=== PATIENT | female | born 1950 | race Caucasian/White ===

== ENCOUNTER 2016-06-26 15:00 | Emergency (ER) | payer OTHER, MEDICAID ==
[~2016-06-26] VITALS: Ht 167.6 cm; Wt 56.7 kg
[2016-06-26 15:00] VITALS: BP_SYST 138
== END 2016-06-26 17:25 | disposition left against medical advice (07) ==
LOC: SED 15:00
DX: M54.2 Cervicalgia (principal); M54.5 Low back pain; M25.551 Pain in right hip; M25.562 Pain in left knee; M25.561 Pain in right knee; M81.0 Age-related osteoporosis without current pathological fracture; W10.9XXA Fall (on) (from) unspecified stairs and steps, initial encounter; Y93.89 Activity, other specified; Y92.89 Other specified places as the place of occurrence of the external cause; Y99.8 Other external cause status
CPT/HCPCS: 72125-TC; 72131; 99284

== ENCOUNTER 2017-03-19 18:30 | Emergency (ER) | payer OTHER, MEDICAID ==
[~2017-03-19] VITALS: Ht 167.6 cm; Wt 54.4 kg
[2017-03-19 18:39] VITALS: BP_SYST 126
--- NOTE | 2017-03-19 19:17 | NUR ---
Patient to ER bed 03 to gown for evaluation. Side rails up.
--- NOTE | 2017-03-19 19:20 | NUR ---
Patient brought in with father complaining of chronic bilateral knee pain. Patient states that she is out of pain medication and her primary doctor is out of town. Pain of 10/10. Patient is using a walker and is sitting at bedside conversing with father. No acute distress noted. Will continue to monitor.
--- NOTE | 2017-03-19 19:40 | NUR ---
Joanna Rivas at bedside examining patient
[2017-03-19 20:30] VITALS: BP_SYST 126
--- NOTE | 2017-03-19 20:30 | NUR ---
Patient given written and verbal discharge instructions and verbalizes understanding. ER MD discussed with patient the results and treatment provided. Patient in stable condition. ID arm band removed. Rx of Tramadol, Mobic, [place] given. Patient educated on pain management and to follow up with PMD in 2-3 days. Pain Scale 0/10 Opportunity for questions provided and answered.
== END 2017-03-19 20:30 | disposition home or self-care (01) ==
LOC: SED 18:30
DX: G89.29 Other chronic pain (principal); M25.551 Pain in right hip; M25.552 Pain in left hip; M25.561 Pain in right knee; M25.562 Pain in left knee; M54.5 Low back pain; M81.0 Age-related osteoporosis without current pathological fracture; R03.0 Elevated blood-pressure reading, without diagnosis of hypertension
CPT/HCPCS: 99283

== ENCOUNTER 2021-12-07 15:35 | Inpatient (IN) | payer BC, MEDICAID ==
[~2021-12-07] VITALS: Ht 165.1 cm; Wt 65.8 kg
[2021-12-07 15:42] VITALS: BP_SYST 110
[2021-12-07] MEDS ORDERED: NALOXONE HCL 2 MG/2 ML SYR IVP ONE (16:45)
[2021-12-07 16:48] LABS: BASOPHILS % (AUTO) 0.4 % (0.0-2.0); EOSINOPHILS % (AUTO) 0.1 % (0.0-4.0); LYMPHOCYTES # (AUTO) 0.9 K/uL (1.0-5.5); LYMPHOCYTES % (AUTO) 17.9 % (20.5-51.5); MEAN CORPUSCULAR VOLUME 97 fL (79.0-98.0); MONOCYTES # (AUTO) 0.8 K/uL (0.0-1.0); MONOCYTES % (AUTO) 14.8 % (1.7-9.3); NEUTROPHILS # (AUTO) 3.5 K/uL (1.8-7.7); NEUTROPHILS % (AUTO) 66.8 % (40.0-70.0); PLATELET COUNT (AUTO) 292 K/uL (130-430); RED BLOOD CELL COUNT(AUTO) 4.03 MIL/uL (4.2-6.2); RED CELL DISTRIBUTION WIDTH 15.3 % (9.0-15.0); WHITE BLOOD COUNT (AUTO) 5.3 K/uL (4.8-10.8)
[2021-12-07 17:01] LABS: ANION GAP 13 (5-15); CALCIUM 9.9 mg/dL (8.4-11.0); CHLORIDE 96 mmol/L (98-107); GLUCOSE 135 mg/dL (70-99); UREA NITROGEN, BLOOD 18 mg/dL (8-21)
[2021-12-07 17:06] LABS: PROTHROMBIN TIME 9.8 SECS (9.5-12.5)
[2021-12-07 17:14] LABS: ALANINE AMINOTRANSFERASE 20 U/L (12-78); ALBUMIN 2.5 g/dL (3.4-4.8); ASPARTATE AMINOTRANSFERASE 61 U/L (10-37); C-REACTIVE PROTEIN QUANT 7.8 mg/dL (0-0.5); GFR AFRICAN AMERICAN 80 mL/min (>90); TOTAL BILIRUBIN 0.5 mg/dL (0.0-1.0)
[2021-12-07 17:15] LABS: POTASSIUM 2.9 mmol/L (3.5-5.1)
[2021-12-07] MEDS ORDERED: DEXAMETHASONE SOD PHOSPHATE 10 MG/ML VIAL IVP ONE (18:15)
[2021-12-07] MEDS ORDERED: ASPIRIN 81 MG TAB.CHEW PO ONE (18:30)
[2021-12-07] MEDS ORDERED: ETOMIDATE 20 MG/ 10 ML VIAL (AMIDATE) IVP ONE (19:15)
[2021-12-07] MEDS ORDERED: ROCURONIUM BROMIDE 10 MG/ML (ZEMURON) IV ONE (19:15)
[2021-12-07] MEDS ORDERED: PROPOFOL DRIP 100 ML IV ONE (19:44)
[2021-12-07] MEDS ORDERED: ROCURONIUM BROMIDE 10 MG/ML (ZEMURON) ONE (20:00)
[2021-12-07] MEDS ORDERED: PROPOFOL DRIP 100 ML IV PRN ×2 (20:00→21:15)
[2021-12-07 20:35] LABS: ACETONE, SERUM NEGATIVE (NEGATIVE)
[2021-12-07 20:44] LABS: ACETAMINOPHEN < 1 ug/mL (1-30); ALCOHOL, BLOOD < 3 mg/dL (<10)
[2021-12-07] MEDS ORDERED: KCL 40 mEq in 100 mL (PREMIX) 100 ML IV ONE (20:45)
[2021-12-07] MEDS ORDERED: ENOXAPARIN SODIUM 60 MG/0.6 ML SYRINGE SUBCUT ONE (21:00)
[2021-12-07] MEDS ORDERED: IPRATROPIUM/ALBUTEROL SULFATE 3 ML AMPUL.NEB (DUONEB) INH PRN (21:00)
[2021-12-07] MEDS ORDERED: NACL 0.9% 1,000 ML IV ONE (21:00)
[2021-12-07] MEDS ORDERED: IPRATROPIUM/ALBUTEROL SULFATE 3 ML AMPUL.NEB (DUONEB) INH SCH (21:00)
[2021-12-07] MEDS ORDERED: ACETAMINOPHEN 325 MG TABLET PO PRN (21:00)
[2021-12-07 21:13] LABS: BILIRUBIN,URINE NEGATIVE (NEGATIVE); BLOOD, URINE NEGATIVE (NEGATIVE); CLARITY/URINE CLEAR (CLEAR); COLOR,URINE YELLOW (YELLOW); GLUCOSE,URINE NEGATIVE (NEGATIVE); KETONES,URINE NEGATIVE (NEGATIVE); LEUKOCYTE ESTERASE ,URINE NEGATIVE (NEGATIVE); NITRITE, URINE NEGATIVE (NEGATIVE); PROTEIN URINE NEGATIVE (NEGATIVE); UROBILINOGEN,URINE 0.2 (0.2-1.0)
[2021-12-07 21:30] VITALS: BP_SYST 114
[2021-12-07] MEDS ORDERED: PANTOPRAZOLE SODIUM 40 MG/VIAL (PROTONIX) IVP ONE (21:30)
[2021-12-07 21:38] LABS: BARBITURATE, URINE NEGATIVE (NEG <=200); BENZODIAZEPINE, URINE NEGATIVE (NEG <=150); CANNABINOID, URINE NEGATIVE (NEG <=50); COCAINE, URINE NEGATIVE (NEG <=150); METHAMPHETAMINES SCREEN,URINE NEGATIVE (NEG <=500); OPIATE, URINE POSITIVE (NEG <=100); PHENCYCLIDINE SCREEN,URINE NEGATIVE (NEG <=25); UR TRICYCLIC ANTIDEPRESSANTS NEGATIVE (NEG <=300); URINE AMPHETAMINE NEGATIVE (NEG <=500); URINE METHADONE NEGATIVE (NEG <=200); URINE OXYCODONE SCREEN NEGATIVE (NEG <=100); URINE PROPOXYPHENE SCREEN NEGATIVE (NEG <=300)
[2021-12-07 22:00] VITALS: BP_SYST 114; BP_SYST 168
[2021-12-07] MEDS ORDERED: cefTRIAXone 1 GM IVPB PREMIX 50 ML IV SCH (22:00)
[2021-12-07 22:03] VITALS: BP_SYST 169
[2021-12-07] MEDS ORDERED: SODIUM BICARBONATE 8.4% JECT 150 MEQ in D5W 1,000 ML IVP SCH (22:26)
[2021-12-07] MEDS ORDERED: SODIUM BICARBONATE 8.4% JECT 50 MEQ/50 ML SYRINGE IVP ONE ×2 (22:26)
[2021-12-07] MEDS ORDERED: SODIUM BICARBONATE 8.4% JECT 50 MEQ/50 ML SYRINGE ONE ×2 (22:37→23:11)
[2021-12-07] MEDS ORDERED: NS 500 ML IV ONE (22:45)
[2021-12-07] MEDS ORDERED: AZITHROMYCIN 500 MG in NS 250 ML IV SCH (23:00)
[2021-12-07 23:33] VITALS: BP_SYST 162
[2021-12-07] MEDS ORDERED: NOREPINEPHRINE BITARTRATE 4 MG in NS 246 ML IV PRN (23:45)
[2021-12-08] VITALS (44 sets, daily range): BP systolic 90–163
[2021-12-08] MEDS: NACL 0.9% 1,000 ML IV SCH ×4 (00:07→17:24)
[2021-12-08] MEDS: PROPOFOL DRIP 100 ML IV PRN ×3 (06:11→20:51)
[2021-12-08 06:54] LABS: CALCIUM 8.1 mg/dL (8.4-11.0); CREATININE 1.26 mg/dL (0.55-1.30); POTASSIUM 4.2 mmol/L (3.5-5.1)
[2021-12-08 06:58] LABS: BASOPHILS % (AUTO) 0.4 % (0.0-2.0); EOSINOPHILS % (AUTO) 0.1 % (0.0-4.0); HEMATOCRIT 36.2 % (36-48); LYMPHOCYTES # (AUTO) 0.7 K/uL (1.0-5.5); LYMPHOCYTES % (AUTO) 5.8 % (20.5-51.5); MEAN CORPUSCULAR VOLUME 97 fL (79.0-98.0); MONOCYTES # (AUTO) 0.3 K/uL (0.0-1.0); MONOCYTES % (AUTO) 2.9 % (1.7-9.3); NEUTROPHILS # (AUTO) 10.7 K/uL (1.8-7.7); NEUTROPHILS % (AUTO) 90.8 % (40.0-70.0); PLATELET COUNT (AUTO) 249 K/uL (130-430); RED BLOOD CELL COUNT(AUTO) 3.72 MIL/uL (4.2-6.2); RED CELL DISTRIBUTION WIDTH 15.4 % (9.0-15.0); WHITE BLOOD COUNT (AUTO) 11.8 K/uL (4.8-10.8)
[2021-12-08 07:02] LABS: ALBUMIN 1.8 g/dL (3.4-4.8); PHOSPHORUS 4.6 mg/dL (2.7-4.5); TOTAL BILIRUBIN 0.4 mg/dL (0.0-1.0)
[2021-12-08 08:05] LABS: INR 1.3 (0.8-1.2)
[2021-12-08 08:11] LABS: PROTHROMBIN TIME 13.3 SECS (9.5-12.5)
[2021-12-08] MEDS ORDERED: DEXAMETHASONE SOD PHOSPHATE 10 MG/ML VIAL IVP SCH (09:00)
[2021-12-08] MEDS ORDERED: ENOXAPARIN SODIUM 60 MG/0.6 ML SYRINGE SUBCUT SCH (09:00)
[2021-12-08] MEDS ORDERED: PANTOPRAZOLE SODIUM 40 MG/VIAL (PROTONIX) IVP SCH (09:00)
[2021-12-08] MEDS: cefTRIAXone 1 GM IVPB PREMIX 50 ML IV SCH (10:00)
[2021-12-08] MEDS: DEXAMETHASONE SOD PHOSPHATE 10 MG/ML VIAL IVP SCH (10:00)
[2021-12-08] MEDS: ASPIRIN 81 MG TAB.CHEW PO SCH (10:01)
[2021-12-08] MEDS: AZITHROMYCIN 500 MG in NS 250 ML IV SCH (10:04)
[2021-12-08] MEDS ORDERED: TOCILIZUMAB 400 MG in NS 100 ML IV ONE (14:00)
[2021-12-08] MEDS: MICAFUNGIN SODIUM 100 MG in NS 100 ML IV SCH (14:11)
[2021-12-08] MEDS: ENOXAPARIN SODIUM 30 MG/0.3 ML SYRINGE SUBCUT SCH (20:45)
[2021-12-09] VITALS (44 sets, daily range): BP systolic 90–160
[2021-12-09] MEDS: NACL 0.9% 1,000 ML IV SCH ×4 (03:00→21:38)
[2021-12-09] MEDS: PROPOFOL DRIP 100 ML IV PRN ×4 (06:57→21:39)
[2021-12-09 07:04] LABS: BASOPHILS # (AUTO) 0.1 K/uL (0.0-0.2); BASOPHILS % (AUTO) 0.6 % (0.0-2.0); LYMPHOCYTES % (AUTO) 8.3 % (20.5-51.5); MEAN CORPUSCULAR VOLUME 98 fL (79.0-98.0); MONOCYTES # (AUTO) 0.4 K/uL (0.0-1.0); MONOCYTES % (AUTO) 3.5 % (1.7-9.3); NEUTROPHILS # (AUTO) 10.7 K/uL (1.8-7.7); NEUTROPHILS % (AUTO) 87.6 % (40.0-70.0); PLATELET COUNT (AUTO) 268 K/uL (130-430); RED BLOOD CELL COUNT(AUTO) 2.87 MIL/uL (4.2-6.2); RED CELL DISTRIBUTION WIDTH 15.7 % (9.0-15.0); WHITE BLOOD COUNT (AUTO) 12.3 K/uL (4.8-10.8)
[2021-12-09 07:17] LABS: CREATININE 1.35 mg/dL (0.55-1.30); POTASSIUM 3.7 mmol/L (3.5-5.1)
[2021-12-09 07:36] LABS: ALBUMIN 1.5 g/dL (3.4-4.8); THYROID STIMULATING HORMONE 0.18 uIu/mL (0.36-3.74); TOTAL BILIRUBIN 0.3 mg/dL (0.0-1.0)
[2021-12-09 08:48] LABS: CALCIUM 6.7 mg/dL (8.4-11.0)
[2021-12-09] MEDS: DEXAMETHASONE SOD PHOSPHATE 10 MG/ML VIAL IVP SCH (08:54)
[2021-12-09] MEDS: cefTRIAXone 1 GM IVPB PREMIX 50 ML IV SCH (08:54)
[2021-12-09] MEDS: ENOXAPARIN SODIUM 30 MG/0.3 ML SYRINGE SUBCUT SCH ×2 (08:54→21:37)
[2021-12-09] MEDS: ASPIRIN 81 MG TAB.CHEW PO SCH (08:54)
[2021-12-09] MEDS: AZITHROMYCIN 500 MG in NS 250 ML IV SCH (09:00)
[2021-12-09] MEDS: MORPHINE SULFATE IN 0.9 % NACL 100 ML IV PRN (10:16)
[2021-12-09] MEDS ORDERED: TOCILIZUMAB 400 MG in NS 100 ML IV ONE (14:00)
[2021-12-09] MEDS: MICAFUNGIN SODIUM 100 MG in NS 100 ML IV SCH (15:34)
[2021-12-10] VITALS (21 sets, daily range): BP systolic 81–143
[2021-12-10 07:15] LABS: BASOPHILS % (AUTO) 0.3 % (0.0-2.0); HEMATOCRIT 28.6 % (36-48); LYMPHOCYTES # (AUTO) 0.8 K/uL (1.0-5.5); LYMPHOCYTES % (AUTO) 5.1 % (20.5-51.5); MEAN CORPUSCULAR VOLUME 98 fL (79.0-98.0); MONOCYTES # (AUTO) 0.4 K/uL (0.0-1.0); MONOCYTES % (AUTO) 2.9 % (1.7-9.3); NEUTROPHILS # (AUTO) 13.6 K/uL (1.8-7.7); NEUTROPHILS % (AUTO) 91.7 % (40.0-70.0); PLATELET COUNT (AUTO) 315 K/uL (130-430); RED BLOOD CELL COUNT(AUTO) 2.91 MIL/uL (4.2-6.2); RED CELL DISTRIBUTION WIDTH 15.5 % (9.0-15.0); WHITE BLOOD COUNT (AUTO) 14.8 K/uL (4.8-10.8)
[2021-12-10 07:55] LABS: CREATININE 1.34 mg/dL (0.55-1.30); POTASSIUM 3.7 mmol/L (3.5-5.1)
[2021-12-10 08:04] LABS: ALBUMIN 1.4 g/dL (3.4-4.8); TOTAL BILIRUBIN 0.4 mg/dL (0.0-1.0)
[2021-12-10] MEDS: cefTRIAXone 1 GM IVPB PREMIX 50 ML IV SCH (09:00)
[2021-12-10 09:03] LABS: CALCIUM 6.6 mg/dL (8.4-11.0)
[2021-12-10] MEDS: ENOXAPARIN SODIUM 30 MG/0.3 ML SYRINGE SUBCUT SCH ×2 (10:00→21:00)
[2021-12-10] MEDS ORDERED: CALCIUM GLUCONATE 2 GM in NS 100 ML IV ONE (10:00)
[2021-12-10] MEDS: DEXAMETHASONE SOD PHOSPHATE 10 MG/ML VIAL IVP SCH (10:00)
[2021-12-10] MEDS: ASPIRIN 81 MG TAB.CHEW PO SCH (10:00)
[2021-12-10] MEDS ORDERED: NOREPINEPHRINE 4 MG/4 ML VIAL IV ONE (10:12)
[2021-12-10] MEDS: AZITHROMYCIN 500 MG in NS 250 ML IV SCH (10:50)
[2021-12-10] MEDS ORDERED: CALCIUM GLUCONATE 1 GM/10 ML VIAL ONE (12:29)
[2021-12-10] MEDS: MORPHINE SULFATE IN 0.9 % NACL 100 ML IV PRN (12:44)
[2021-12-10] MEDS: NACL 0.9% 1,000 ML IV SCH ×2 (13:02→22:00)
[2021-12-10] MEDS: PROPOFOL DRIP 100 ML IV PRN ×2 (13:52→19:23)
[2021-12-10] MEDS: MICAFUNGIN SODIUM 100 MG in NS 100 ML IV SCH (16:12)
[2021-12-11] VITALS (23 sets, daily range): BP systolic 104–164
[2021-12-11] MEDS: cefTRIAXone 1 GM IVPB PREMIX 50 ML IV SCH (08:23)
[2021-12-11] MEDS: ASPIRIN 81 MG TAB.CHEW PO SCH (08:24)
[2021-12-11] MEDS: DEXAMETHASONE SOD PHOSPHATE 10 MG/ML VIAL IVP SCH (08:24)
[2021-12-11] MEDS: ENOXAPARIN SODIUM 30 MG/0.3 ML SYRINGE SUBCUT SCH ×2 (08:24→22:17)
[2021-12-11] MEDS: PROPOFOL DRIP 100 ML IV PRN ×3 (08:26→22:17)
[2021-12-11] MEDS: AZITHROMYCIN 500 MG in NS 250 ML IV SCH (10:49)
[2021-12-11] MEDS ORDERED: FUROSEMIDE 20 MG/2 ML VIAL IVP ONE (11:30)
[2021-12-11] MEDS: MICAFUNGIN SODIUM 100 MG in NS 100 ML IV SCH (16:00)
[2021-12-11] MEDS ORDERED: IPRATROPIUM/ALBUTEROL SULFATE 3 ML AMPUL.NEB (DUONEB) ONE (16:03)
[2021-12-11] MEDS: MORPHINE SULFATE IN 0.9 % NACL 100 ML IV PRN (22:21)
[2021-12-11] MEDS: IPRATROPIUM/ALBUTEROL SULFATE 3 ML AMPUL.NEB (DUONEB) INH SCH (23:35)
[2021-12-12] VITALS (37 sets, daily range): BP systolic 59–142
[2021-12-12] MEDS: PROPOFOL DRIP 100 ML IV PRN ×3 (03:37→22:32)
[2021-12-12] MEDS: MORPHINE SULFATE IN 0.9 % NACL 100 ML IV PRN ×3 (05:00→22:35)
[2021-12-12 07:44] LABS: BASOPHILS % (AUTO) 0.1 % (0.0-2.0); HEMATOCRIT 31.6 % (36-48); LYMPHOCYTES # (AUTO) 0.6 K/uL (1.0-5.5); LYMPHOCYTES % (AUTO) 3.4 % (20.5-51.5); MEAN CORPUSCULAR VOLUME 100 fL (79.0-98.0); MONOCYTES # (AUTO) 0.8 K/uL (0.0-1.0); MONOCYTES % (AUTO) 4.4 % (1.7-9.3); NEUTROPHILS % (AUTO) 92.1 % (40.0-70.0); PLATELET COUNT (AUTO) 359 K/uL (130-430); RED BLOOD CELL COUNT(AUTO) 3.16 MIL/uL (4.2-6.2); RED CELL DISTRIBUTION WIDTH 16.6 % (9.0-15.0); WHITE BLOOD COUNT (AUTO) 17.4 K/uL (4.8-10.8)
[2021-12-12 08:38] LABS: ALBUMIN 1.9 g/dL (3.4-4.8); CALCIUM 7.6 mg/dL (8.4-11.0); CREATININE 1.04 mg/dL (0.55-1.30); TOTAL BILIRUBIN 0.4 mg/dL (0.0-1.0)
[2021-12-12] MEDS: IPRATROPIUM/ALBUTEROL SULFATE 3 ML AMPUL.NEB (DUONEB) INH SCH ×3 (09:00→19:42)
[2021-12-12] MEDS: AZITHROMYCIN 500 MG in NS 250 ML IV SCH (10:34)
[2021-12-12] MEDS: ASPIRIN 81 MG TAB.CHEW PO SCH (10:34)
[2021-12-12] MEDS: DEXAMETHASONE SOD PHOSPHATE 10 MG/ML VIAL IVP SCH (10:34)
[2021-12-12] MEDS: ENOXAPARIN SODIUM 30 MG/0.3 ML SYRINGE SUBCUT SCH ×2 (10:37→21:00)
[2021-12-12] MEDS: PIPERACILLIN/TAZO 2.25G/DEX-IS 50 ML IV SCH ×3 (16:16→23:27)
[2021-12-12] MEDS: MICAFUNGIN SODIUM 100 MG in NS 100 ML IV SCH (16:17)
[2021-12-13] VITALS (42 sets, daily range): BP systolic 95–160
[2021-12-13] MEDS: PROPOFOL DRIP 100 ML IV PRN ×4 (05:55→22:48)
[2021-12-13 07:42] LABS: ALBUMIN 1.8 g/dL (3.4-4.8); CREATININE 0.95 mg/dL (0.55-1.30); POTASSIUM 4.5 mmol/L (3.5-5.1); TOTAL BILIRUBIN 0.2 mg/dL (0.0-1.0)
[2021-12-13] MEDS: PIPERACILLIN/TAZO 2.25G/DEX-IS 50 ML IV SCH ×4 (08:33→23:18)
[2021-12-13] MEDS: ASPIRIN 81 MG TAB.CHEW PO SCH (08:34)
[2021-12-13] MEDS: DEXAMETHASONE SOD PHOSPHATE 10 MG/ML VIAL IVP SCH (08:35)
[2021-12-13] MEDS: ENOXAPARIN SODIUM 30 MG/0.3 ML SYRINGE SUBCUT SCH ×2 (08:35→20:35)
[2021-12-13] MEDS: MICAFUNGIN SODIUM 100 MG in NS 100 ML IV SCH (14:12)
[2021-12-13] MEDS: MORPHINE SULFATE IN 0.9 % NACL 100 ML IV PRN ×2 (14:14→22:48)
[2021-12-13] MEDS: IPRATROPIUM/ALBUTEROL SULFATE 3 ML AMPUL.NEB (DUONEB) INH SCH ×3 (17:20→20:08)
[2021-12-14] VITALS (33 sets, daily range): BP systolic 97–149
[2021-12-14] MEDS: PROPOFOL DRIP 100 ML IV PRN ×3 (04:46→17:43)
[2021-12-14] MEDS: PIPERACILLIN/TAZO 2.25G/DEX-IS 50 ML IV SCH ×3 (05:28→18:56)
[2021-12-14] MEDS: MORPHINE SULFATE IN 0.9 % NACL 100 ML IV PRN ×2 (06:32→17:44)
[2021-12-14] MEDS: IPRATROPIUM/ALBUTEROL SULFATE 3 ML AMPUL.NEB (DUONEB) INH PRN (07:41)
[2021-12-14] MEDS: IPRATROPIUM/ALBUTEROL SULFATE 3 ML AMPUL.NEB (DUONEB) INH SCH ×4 (08:10→19:55)
[2021-12-14] MEDS: ASPIRIN 81 MG TAB.CHEW PO SCH (08:25)
[2021-12-14] MEDS: ENOXAPARIN SODIUM 30 MG/0.3 ML SYRINGE SUBCUT SCH ×2 (08:27→21:19)
[2021-12-14] MEDS: DEXAMETHASONE SOD PHOSPHATE 10 MG/ML VIAL IVP SCH (08:28)
[2021-12-14 09:22] LABS: ALBUMIN 1.9 g/dL (3.4-4.8); CALCIUM 8.7 mg/dL (8.4-11.0); CREATININE 1.14 mg/dL (0.55-1.30); POTASSIUM 5.1 mmol/L (3.5-5.1); TOTAL BILIRUBIN 0.2 mg/dL (0.0-1.0)
[2021-12-14] MEDS: MICAFUNGIN SODIUM 100 MG in NS 100 ML IV SCH (14:08)
[2021-12-15] VITALS (35 sets, daily range): BP systolic 90–169
[2021-12-15] MEDS: PIPERACILLIN/TAZO 2.25G/DEX-IS 50 ML IV SCH ×4 (00:18→18:07)
[2021-12-15] MEDS: PROPOFOL DRIP 100 ML IV PRN ×4 (02:46→22:53)
[2021-12-15] MEDS: MORPHINE SULFATE IN 0.9 % NACL 100 ML IV PRN ×2 (05:35→18:42)
[2021-12-15] MEDS: IPRATROPIUM/ALBUTEROL SULFATE 3 ML AMPUL.NEB (DUONEB) INH SCH ×4 (07:42→19:50)
[2021-12-15 07:55] LABS: ALBUMIN 2.2 g/dL (3.4-4.8); CALCIUM 9.2 mg/dL (8.4-11.0); CREATININE 0.95 mg/dL (0.55-1.30); POTASSIUM 5.6 mmol/L (3.5-5.1); TOTAL BILIRUBIN 0.4 mg/dL (0.0-1.0)
[2021-12-15] MEDS: DEXAMETHASONE SOD PHOSPHATE 10 MG/ML VIAL IVP SCH (08:24)
[2021-12-15] MEDS: ASPIRIN 81 MG TAB.CHEW PO SCH (08:24)
[2021-12-15] MEDS: ENOXAPARIN SODIUM 30 MG/0.3 ML SYRINGE SUBCUT SCH ×2 (08:25→20:39)
[2021-12-15 08:44] LABS: BASOPHILS # (AUTO) 0.1 K/uL (0.0-0.2); BASOPHILS % (AUTO) 0.6 % (0.0-2.0); EOSINOPHILS # (AUTO) 0.1 K/uL (0.0-0.4); EOSINOPHILS % (AUTO) 0.8 % (0.0-4.0); HEMATOCRIT 35.4 % (36-48); HEMOGLOBIN 11.4 g/dL (12.0-16.0); LYMPHOCYTES # (AUTO) 1.6 K/uL (1.0-5.5); LYMPHOCYTES % (AUTO) 11.7 % (20.5-51.5); MEAN CORPUSCULAR HEMOGLOBIN 33 pg (27-31); MEAN CORPUSCULAR HGB CONC 32 % (32-36); MEAN CORPUSCULAR VOLUME 102 fL (79.0-98.0); MONOCYTES # (AUTO) 1.2 K/uL (0.0-1.0); MONOCYTES % (AUTO) 8.8 % (1.7-9.3); NEUTROPHILS # (AUTO) 10.4 K/uL (1.8-7.7); NEUTROPHILS % (AUTO) 78.1 % (40.0-70.0); PLATELET COUNT (AUTO) 292 K/uL (130-430); RED BLOOD CELL COUNT(AUTO) 3.49 MIL/uL (4.2-6.2); RED CELL DISTRIBUTION WIDTH 16.6 % (9.0-15.0); WHITE BLOOD COUNT (AUTO) 13.3 K/uL (4.8-10.8)
[2021-12-15] MEDS ORDERED: FUROSEMIDE 20 MG/2 ML VIAL IVP ONE (10:00)
[2021-12-15] MEDS ORDERED: SODIUM POLYSTYRENE SULFONATE 15 GM/60 ML UDBTL PO ONE (13:45)
[2021-12-15] MEDS ORDERED: MICAFUNGIN SODIUM 100 MG in NS 100 ML IV SCH (15:30)
[2021-12-15] MEDS: DEXMEDETOMIDINE HCL 400 MCG in NS 96 ML IV PRN (16:22)
[2021-12-15] MEDS: VORICONAZOLE 200 MG in NS 100 ML IV SCH (20:37)
[2021-12-15] MEDS: FUROSEMIDE 20 MG/2 ML VIAL IVP SCH (20:38)
[2021-12-16] VITALS (33 sets, daily range): BP systolic 92–158
[2021-12-16] MEDS: PIPERACILLIN/TAZO 2.25G/DEX-IS 50 ML IV SCH ×5 (00:24→23:30)
[2021-12-16] MEDS: PROPOFOL DRIP 100 ML IV PRN ×4 (01:55→22:58)
[2021-12-16 06:59] LABS: BASOPHILS % (AUTO) 0.1 % (0.0-2.0); EOSINOPHILS # (AUTO) 0.1 K/uL (0.0-0.4); EOSINOPHILS % (AUTO) 0.9 % (0.0-4.0); HEMATOCRIT 34.2 % (36-48); HEMOGLOBIN 11.3 g/dL (12.0-16.0); LYMPHOCYTES # (AUTO) 1.3 K/uL (1.0-5.5); MEAN CORPUSCULAR HEMOGLOBIN 33 pg (27-31); MEAN CORPUSCULAR HGB CONC 33 % (32-36); MEAN CORPUSCULAR VOLUME 100 fL (79.0-98.0); MONOCYTES # (AUTO) 1.1 K/uL (0.0-1.0); MONOCYTES % (AUTO) 7.1 % (1.7-9.3); NEUTROPHILS # (AUTO) 12.3 K/uL (1.8-7.7); NEUTROPHILS % (AUTO) 82.9 % (40.0-70.0); PLATELET COUNT (AUTO) 257 K/uL (130-430); RED CELL DISTRIBUTION WIDTH 16.3 % (9.0-15.0); WHITE BLOOD COUNT (AUTO) 14.8 K/uL (4.8-10.8)
[2021-12-16] MEDS: IPRATROPIUM/ALBUTEROL SULFATE 3 ML AMPUL.NEB (DUONEB) INH SCH ×4 (07:00→19:58)
[2021-12-16 08:00] LABS: ALBUMIN 2.1 g/dL (3.4-4.8); CREATININE 0.87 mg/dL (0.55-1.30); POTASSIUM 4.7 mmol/L (3.5-5.1); TOTAL BILIRUBIN 0.6 mg/dL (0.0-1.0)
[2021-12-16] MEDS: VORICONAZOLE 200 MG in NS 100 ML IV SCH ×2 (13:22→20:24)
[2021-12-16] MEDS: FUROSEMIDE 20 MG/2 ML VIAL IVP SCH ×2 (13:29→20:24)
[2021-12-16] MEDS: DEXAMETHASONE SOD PHOSPHATE 10 MG/ML VIAL IVP SCH (13:30)
[2021-12-16] MEDS: ASPIRIN 81 MG TAB.CHEW PO SCH (13:40)
[2021-12-16] MEDS: ENOXAPARIN SODIUM 30 MG/0.3 ML SYRINGE SUBCUT SCH ×2 (13:40→20:23)
[2021-12-16] MEDS: MORPHINE SULFATE IN 0.9 % NACL 100 ML IV PRN ×2 (13:53→23:45)
[2021-12-16] MEDS: DEXMEDETOMIDINE HCL 400 MCG in NS 96 ML IV PRN (23:46)
[2021-12-16] MEDS: IPRATROPIUM/ALBUTEROL SULFATE 3 ML AMPUL.NEB (DUONEB) INH PRN (23:55)
[2021-12-17] VITALS (29 sets, daily range): BP systolic 97–147
[2021-12-17] MEDS: PROPOFOL DRIP 100 ML IV PRN ×6 (01:52→23:43)
[2021-12-17] MEDS: IPRATROPIUM/ALBUTEROL SULFATE 3 ML AMPUL.NEB (DUONEB) INH PRN (01:58)
[2021-12-17] MEDS: PIPERACILLIN/TAZO 2.25G/DEX-IS 50 ML IV SCH ×3 (05:37→17:36)
[2021-12-17 06:33] LABS: BASOPHILS % (AUTO) 0.2 % (0.0-2.0); HEMATOCRIT 29.3 % (36-48); HEMOGLOBIN 9.9 g/dL (12.0-16.0); LYMPHOCYTES # (AUTO) 0.4 K/uL (1.0-5.5); LYMPHOCYTES % (AUTO) 2.3 % (20.5-51.5); MEAN CORPUSCULAR HEMOGLOBIN 33 pg (27-31); MEAN CORPUSCULAR HGB CONC 34 % (32-36); MEAN CORPUSCULAR VOLUME 99 fL (79.0-98.0); MONOCYTES # (AUTO) 0.5 K/uL (0.0-1.0); MONOCYTES % (AUTO) 3.4 % (1.7-9.3); NEUTROPHILS # (AUTO) 14.6 K/uL (1.8-7.7); NEUTROPHILS % (AUTO) 94.1 % (40.0-70.0); PLATELET COUNT (AUTO) 184 K/uL (130-430); RED BLOOD CELL COUNT(AUTO) 2.98 MIL/uL (4.2-6.2); RED CELL DISTRIBUTION WIDTH 15.7 % (9.0-15.0); WHITE BLOOD COUNT (AUTO) 15.6 K/uL (4.8-10.8)
[2021-12-17 07:12] LABS: ALBUMIN 1.7 g/dL (3.4-4.8); CALCIUM 8.4 mg/dL (8.4-11.0); CREATININE 1.02 mg/dL (0.55-1.30); POTASSIUM 5.3 mmol/L (3.5-5.1); TOTAL BILIRUBIN 0.7 mg/dL (0.0-1.0)
[2021-12-17] MEDS: IPRATROPIUM/ALBUTEROL SULFATE 3 ML AMPUL.NEB (DUONEB) INH SCH ×3 (07:42→19:50)
[2021-12-17] MEDS: VORICONAZOLE 200 MG in NS 100 ML IV SCH ×2 (08:01→22:10)
[2021-12-17] MEDS: FUROSEMIDE 20 MG/2 ML VIAL IVP SCH (08:03)
[2021-12-17] MEDS: ENOXAPARIN SODIUM 30 MG/0.3 ML SYRINGE SUBCUT SCH (08:04)
[2021-12-17] MEDS: ASPIRIN 81 MG TAB.CHEW PO SCH (08:04)
[2021-12-17] MEDS: DEXAMETHASONE SOD PHOSPHATE 10 MG/ML VIAL IVP SCH (08:04)
[2021-12-17] MEDS: DEXMEDETOMIDINE HCL 400 MCG in NS 96 ML IV PRN (09:24)
[2021-12-17] MEDS: MORPHINE SULFATE IN 0.9 % NACL 100 ML IV PRN ×2 (09:30→23:43)
[2021-12-17] MEDS ORDERED: SODIUM POLYSTYRENE SULFONATE 15 GM/60 ML UDBTL NG ONE (10:00)
[2021-12-17] MEDS: METHYLPREDNISOLONE SOD SUCC 40 MG/ML VIAL IVP SCH ×2 (11:38→17:35)
[2021-12-17] MEDS ORDERED: *LOVENOX 1MG/KG Q12H/PHARMACY XX ONE (21:00)
[2021-12-17] MEDS: ENOXAPARIN SODIUM 60 MG/0.6 ML SYRINGE SUBCUT SCH (22:10)
[2021-12-18] VITALS (35 sets, daily range): BP systolic 82–230
[2021-12-18] MEDS: DEXMEDETOMIDINE HCL 400 MCG in NS 96 ML IV PRN (01:06)
[2021-12-18] MEDS: PIPERACILLIN/TAZO 2.25G/DEX-IS 50 ML IV SCH ×4 (01:08→17:21)
[2021-12-18] MEDS: METHYLPREDNISOLONE SOD SUCC 40 MG/ML VIAL IVP SCH ×4 (01:08→17:20)
[2021-12-18] MEDS: PROPOFOL DRIP 100 ML IV PRN ×5 (04:23→20:40)
[2021-12-18 06:53] LABS: BASOPHILS # (AUTO) 0.1 K/uL (0.0-0.2); BASOPHILS % (AUTO) 0.2 % (0.0-2.0); HEMATOCRIT 33.4 % (36-48); HEMOGLOBIN 10.8 g/dL (12.0-16.0); LYMPHOCYTES # (AUTO) 0.5 K/uL (1.0-5.5); LYMPHOCYTES % (AUTO) 1.8 % (20.5-51.5); MEAN CORPUSCULAR HEMOGLOBIN 32 pg (27-31); MEAN CORPUSCULAR HGB CONC 33 % (32-36); MEAN CORPUSCULAR VOLUME 100 fL (79.0-98.0); MONOCYTES % (AUTO) 3.7 % (1.7-9.3); NEUTROPHILS # (AUTO) 26.8 K/uL (1.8-7.7); NEUTROPHILS % (AUTO) 94.3 % (40.0-70.0); PLATELET COUNT (AUTO) 259 K/uL (130-430); RED BLOOD CELL COUNT(AUTO) 3.34 MIL/uL (4.2-6.2); RED CELL DISTRIBUTION WIDTH 16.1 % (9.0-15.0); WHITE BLOOD COUNT (AUTO) 28.4 K/uL (4.8-10.8)
[2021-12-18 07:27] LABS: C-REACTIVE PROTEIN QUANT 1.2 mg/dL (0-0.5); CALCIUM 9.2 mg/dL (8.4-11.0); CREATININE 0.9 mg/dL (0.55-1.30)
[2021-12-18] MEDS: IPRATROPIUM/ALBUTEROL SULFATE 3 ML AMPUL.NEB (DUONEB) INH SCH ×4 (07:44→19:45)
[2021-12-18 08:25] LABS: ERYTHROCYTE SEDIMENTATION RATE 21 MM/HR (0-20)
[2021-12-18] MEDS: ASPIRIN 81 MG TAB.CHEW PO SCH (08:29)
[2021-12-18] MEDS: ENOXAPARIN SODIUM 60 MG/0.6 ML SYRINGE SUBCUT SCH ×2 (08:30→21:34)
[2021-12-18] MEDS: VORICONAZOLE 200 MG in NS 100 ML IV SCH ×2 (08:30→21:33)
[2021-12-18] MEDS: MORPHINE SULFATE IN 0.9 % NACL 100 ML IV PRN (11:53)
[2021-12-18] MEDS ORDERED: METOPROLOL TARTRATE 5 MG/5 ML VIAL IVP ONE (16:15)
[2021-12-19] VITALS (32 sets, daily range): BP systolic 91–168
[2021-12-19] MEDS: MORPHINE SULFATE IN 0.9 % NACL 100 ML IV SCH ×3 (01:31→17:37)
[2021-12-19 07:00] LABS: BASOPHILS % (AUTO) 0.1 % (0.0-2.0); HEMATOCRIT 26.1 % (36-48); HEMOGLOBIN 8.7 g/dL (12.0-16.0); LYMPHOCYTES # (AUTO) 0.3 K/uL (1.0-5.5); LYMPHOCYTES % (AUTO) 1.5 % (20.5-51.5); MEAN CORPUSCULAR HEMOGLOBIN 34 pg (27-31); MEAN CORPUSCULAR HGB CONC 33 % (32-36); MEAN CORPUSCULAR VOLUME 101 fL (79.0-98.0); MONOCYTES # (AUTO) 1.1 K/uL (0.0-1.0); MONOCYTES % (AUTO) 5.5 % (1.7-9.3); NEUTROPHILS # (AUTO) 18.5 K/uL (1.8-7.7); NEUTROPHILS % (AUTO) 92.9 % (40.0-70.0); PLATELET COUNT (AUTO) 189 K/uL (130-430); RED BLOOD CELL COUNT(AUTO) 2.59 MIL/uL (4.2-6.2); RED CELL DISTRIBUTION WIDTH 16.3 % (9.0-15.0); WHITE BLOOD COUNT (AUTO) 19.9 K/uL (4.8-10.8)
[2021-12-19] MEDS: IPRATROPIUM/ALBUTEROL SULFATE 3 ML AMPUL.NEB (DUONEB) INH SCH ×4 (07:00→19:35)
[2021-12-19 07:15] LABS: ALBUMIN 1.7 g/dL (3.4-4.8); ANION GAP 5 (5-15); CALCIUM 8.5 mg/dL (8.4-11.0); CHLORIDE 105 mmol/L (98-107); CREATININE 1.07 mg/dL (0.55-1.30); GLUCOSE 276 mg/dL (70-99); TOTAL BILIRUBIN 0.3 mg/dL (0.0-1.0); UREA NITROGEN, BLOOD 49 mg/dL (8-21)
[2021-12-19] MEDS ORDERED: DEXMEDETOMIDINE HCL 200 MCG/2 ML VIAL IV ONE (08:06)
[2021-12-19] MEDS: DEXMEDETOMIDINE HCL 400 MCG in NS 96 ML IV SCH ×2 (08:36→21:56)
[2021-12-19 08:45] LABS: GFR AFRICAN AMERICAN 65 mL/min (>90)
[2021-12-19 08:46] LABS: ALANINE AMINOTRANSFERASE 20 U/L (12-78); ASPARTATE AMINOTRANSFERASE 15 U/L (10-37)
[2021-12-19] MEDS: ASPIRIN 81 MG TAB.CHEW PO SCH (08:46)
[2021-12-19] MEDS: METHYLPREDNISOLONE SOD SUCC 40 MG/ML VIAL IVP SCH ×3 (08:46→21:18)
[2021-12-19] MEDS ORDERED: ENOXAPARIN SODIUM 60 MG/0.6 ML SYRINGE SUBCUT SCH (09:00)
[2021-12-19 09:41] LABS: C-REACTIVE PROTEIN QUANT < 0.2 mg/dL (0-0.5)
[2021-12-19] MEDS: PROPOFOL DRIP 100 ML IV PRN ×3 (10:07→21:58)
[2021-12-19] MEDS: VORICONAZOLE 200 MG in NS 100 ML IV SCH ×2 (10:28→21:17)
[2021-12-19 12:04] LABS: ERYTHROCYTE SEDIMENTATION RATE 13 MM/HR (0-20)
[2021-12-19] MEDS: ENOXAPARIN SODIUM 30 MG/0.3 ML SYRINGE SUBCUT SCH (21:19)
[2021-12-20] VITALS (33 sets, daily range): BP systolic 65–182
[2021-12-20] MEDS: PROPOFOL DRIP 100 ML IV PRN ×6 (01:42→23:50)
[2021-12-20] MEDS: MORPHINE SULFATE IN 0.9 % NACL 100 ML IV SCH (04:42)
[2021-12-20 06:46] LABS: BASOPHILS # (AUTO) 0.1 K/uL (0.0-0.2); BASOPHILS % (AUTO) 0.4 % (0.0-2.0); EOSINOPHILS % (AUTO) 0.1 % (0.0-4.0); HEMATOCRIT 27.1 % (36-48); HEMOGLOBIN 8.9 g/dL (12.0-16.0); LYMPHOCYTES # (AUTO) 0.3 K/uL (1.0-5.5); LYMPHOCYTES % (AUTO) 1.3 % (20.5-51.5); MEAN CORPUSCULAR HEMOGLOBIN 33 pg (27-31); MEAN CORPUSCULAR HGB CONC 33 % (32-36); MEAN CORPUSCULAR VOLUME 101 fL (79.0-98.0); MONOCYTES # (AUTO) 1.1 K/uL (0.0-1.0); MONOCYTES % (AUTO) 5.3 % (1.7-9.3); NEUTROPHILS # (AUTO) 19.7 K/uL (1.8-7.7); NEUTROPHILS % (AUTO) 92.9 % (40.0-70.0); PLATELET COUNT (AUTO) 193 K/uL (130-430); RED BLOOD CELL COUNT(AUTO) 2.67 MIL/uL (4.2-6.2); RED CELL DISTRIBUTION WIDTH 15.9 % (9.0-15.0); WHITE BLOOD COUNT (AUTO) 21.2 K/uL (4.8-10.8)
[2021-12-20] MEDS: IPRATROPIUM/ALBUTEROL SULFATE 3 ML AMPUL.NEB (DUONEB) INH SCH ×4 (07:39→20:04)
[2021-12-20 07:45] LABS: ALBUMIN 1.9 g/dL (3.4-4.8); CALCIUM 9.2 mg/dL (8.4-11.0); CREATININE 1.02 mg/dL (0.55-1.30); POTASSIUM 5.2 mmol/L (3.5-5.1); TOTAL BILIRUBIN 0.3 mg/dL (0.0-1.0)
[2021-12-20] MEDS: DEXMEDETOMIDINE HCL 400 MCG in NS 96 ML IV SCH ×2 (09:15→21:39)
[2021-12-20] MEDS: METHYLPREDNISOLONE SOD SUCC 40 MG/ML VIAL IVP SCH ×2 (09:34→20:56)
[2021-12-20] MEDS: ASPIRIN 81 MG TAB.CHEW PO SCH (09:34)
[2021-12-20] MEDS: VORICONAZOLE 200 MG in NS 100 ML IV SCH ×2 (09:34→20:55)
[2021-12-20] MEDS: ENOXAPARIN SODIUM 30 MG/0.3 ML SYRINGE SUBCUT SCH ×2 (09:35→20:56)
[2021-12-20] MEDS ORDERED: FUROSEMIDE 40 MG/4 ML VIAL IVP ONE (11:15)
[2021-12-20 14:14] LABS: INR 0.9 (0.8-1.2); PROTHROMBIN TIME 9.6 SECS (9.5-12.5)
[2021-12-20] MEDS ORDERED: NOREPINEPHRINE BITARTRATE 8 MG in NS 242 ML IV PRN (16:30)
[2021-12-20] MEDS ORDERED: NOREPINEPHRINE 4 MG/4 ML VIAL IV ONE (16:49)
[2021-12-20] MEDS: CEFEPIME 2 GM in D5W 100 ML IV SCH (23:04)
[2021-12-21] VITALS (35 sets, daily range): BP systolic 87–150
[2021-12-21] MEDS: MORPHINE SULFATE IN 0.9 % NACL 100 ML IV SCH ×2 (06:55→22:13)
[2021-12-21] MEDS: DEXMEDETOMIDINE HCL 400 MCG in NS 96 ML IV SCH (06:57)
[2021-12-21 07:02] LABS: BASOPHILS # (AUTO) 0.1 K/uL (0.0-0.2); BASOPHILS % (AUTO) 0.3 % (0.0-2.0); HEMATOCRIT 26.5 % (36-48); HEMOGLOBIN 8.7 g/dL (12.0-16.0); LYMPHOCYTES # (AUTO) 0.5 K/uL (1.0-5.5); LYMPHOCYTES % (AUTO) 1.9 % (20.5-51.5); MEAN CORPUSCULAR HEMOGLOBIN 33 pg (27-31); MEAN CORPUSCULAR HGB CONC 33 % (32-36); MEAN CORPUSCULAR VOLUME 101 fL (79.0-98.0); MONOCYTES % (AUTO) 4.3 % (1.7-9.3); NEUTROPHILS # (AUTO) 22.1 K/uL (1.8-7.7); NEUTROPHILS % (AUTO) 93.5 % (40.0-70.0); PLATELET COUNT (AUTO) 216 K/uL (130-430); RED BLOOD CELL COUNT(AUTO) 2.64 MIL/uL (4.2-6.2); RED CELL DISTRIBUTION WIDTH 16.2 % (9.0-15.0); WHITE BLOOD COUNT (AUTO) 23.6 K/uL (4.8-10.8)
[2021-12-21] MEDS: IPRATROPIUM/ALBUTEROL SULFATE 3 ML AMPUL.NEB (DUONEB) INH SCH ×4 (07:21→19:50)
[2021-12-21 08:27] LABS: CREATININE 1.09 mg/dL (0.55-1.30); POTASSIUM 5.7 mmol/L (3.5-5.1)
[2021-12-21] MEDS: ENOXAPARIN SODIUM 30 MG/0.3 ML SYRINGE SUBCUT SCH ×2 (08:45→22:11)
[2021-12-21] MEDS: ASPIRIN 81 MG TAB.CHEW PO SCH (08:45)
[2021-12-21] MEDS: METHYLPREDNISOLONE SOD SUCC 40 MG/ML VIAL IVP SCH ×2 (08:45→22:00)
[2021-12-21] MEDS: VORICONAZOLE 200 MG in NS 100 ML IV SCH ×2 (08:48→22:00)
[2021-12-21] MEDS: CEFEPIME 2 GM in D5W 100 ML IV SCH ×2 (08:48→21:59)
[2021-12-21] MEDS ORDERED: SODIUM ZIRCONIUM CYCLOSILICATE 10 GM POWD.PACK PO ONE (09:15)
[2021-12-21] MEDS: NACL 0.9% 1,000 ML IV SCH ×2 (09:17→22:06)
[2021-12-21] MEDS ORDERED: SODIUM POLYSTYRENE SULFONATE 15 GM/60 ML UDBTL PO ONE (10:00)
[2021-12-21] MEDS: PROPOFOL DRIP 100 ML IV PRN (10:30)
[2021-12-21] MEDS ORDERED: FUROSEMIDE 40 MG/4 ML VIAL IVP ONE (10:45)
[2021-12-21 12:27] LABS: INR 0.9 (0.8-1.2); PROTHROMBIN TIME 9.9 SECS (9.5-12.5)
[2021-12-21] MEDS: metroNIDAZOLE 250 mg/NS 50 ML IV SCH ×2 (14:29→22:05)
[2021-12-21] MEDS: DEXMEDETOMIDINE HCL 400 MCG in NS 96 ML IV PRN (22:13)
[2021-12-22] VITALS (45 sets, daily range): BP systolic 90–178
[2021-12-22] MEDS: PROPOFOL DRIP 100 ML IV PRN ×5 (02:13→20:31)
[2021-12-22] MEDS: MORPHINE SULFATE IN 0.9 % NACL 100 ML IV SCH ×2 (02:14→11:04)
[2021-12-22] MEDS: metroNIDAZOLE 250 mg/NS 50 ML IV SCH ×3 (07:03→21:38)
[2021-12-22 07:09] LABS: BASOPHILS # (AUTO) 0.1 K/uL (0.0-0.2); BASOPHILS % (AUTO) 0.2 % (0.0-2.0); HEMATOCRIT 26.6 % (36-48); HEMOGLOBIN 8.7 g/dL (12.0-16.0); LYMPHOCYTES # (AUTO) 0.4 K/uL (1.0-5.5); LYMPHOCYTES % (AUTO) 1.7 % (20.5-51.5); MEAN CORPUSCULAR HEMOGLOBIN 34 pg (27-31); MEAN CORPUSCULAR HGB CONC 33 % (32-36); MEAN CORPUSCULAR VOLUME 102 fL (79.0-98.0); MONOCYTES % (AUTO) 4.3 % (1.7-9.3); NEUTROPHILS # (AUTO) 21.9 K/uL (1.8-7.7); NEUTROPHILS % (AUTO) 93.8 % (40.0-70.0); PLATELET COUNT (AUTO) 215 K/uL (130-430); RED BLOOD CELL COUNT(AUTO) 2.61 MIL/uL (4.2-6.2); RED CELL DISTRIBUTION WIDTH 15.9 % (9.0-15.0); WHITE BLOOD COUNT (AUTO) 23.3 K/uL (4.8-10.8)
[2021-12-22] MEDS: DEXMEDETOMIDINE HCL 400 MCG in NS 96 ML IV PRN ×3 (07:11→20:12)
[2021-12-22 08:03] LABS: CALCIUM 8.4 mg/dL (8.4-11.0); CREATININE 0.94 mg/dL (0.55-1.30); POTASSIUM 4.9 mmol/L (3.5-5.1)
[2021-12-22] MEDS: CEFEPIME 2 GM in D5W 100 ML IV SCH ×2 (08:07→20:28)
[2021-12-22] MEDS: ENOXAPARIN SODIUM 30 MG/0.3 ML SYRINGE SUBCUT SCH ×2 (08:08→20:29)
[2021-12-22] MEDS: ASPIRIN 81 MG TAB.CHEW PO SCH (08:08)
[2021-12-22] MEDS: METHYLPREDNISOLONE SOD SUCC 40 MG/ML VIAL IVP SCH ×2 (08:09→20:29)
[2021-12-22] MEDS: FUROSEMIDE 40 MG/4 ML VIAL IVP SCH (08:10)
[2021-12-22] MEDS: IPRATROPIUM/ALBUTEROL SULFATE 3 ML AMPUL.NEB (DUONEB) INH SCH ×3 (09:40→15:44)
[2021-12-22] MEDS: VORICONAZOLE 200 MG in NS 100 ML IV SCH ×2 (11:46→20:28)
[2021-12-22] MEDS ORDERED: SODIUM ZIRCONIUM CYCLOSILICATE 10 GM POWD.PACK PO ONE (21:00)
[2021-12-22] MEDS ORDERED: METOPROLOL TARTRATE 5 MG/5 ML VIAL IVP PRN (22:45)
[2021-12-23] VITALS (22 sets, daily range): BP systolic 0–107
[2021-12-23] MEDS: PROPOFOL DRIP 100 ML IV PRN ×2 (00:59→05:24)
[2021-12-23] MEDS: MORPHINE SULFATE IN 0.9 % NACL 100 ML IV SCH (01:37)
[2021-12-23] MEDS: DEXMEDETOMIDINE HCL 400 MCG in NS 96 ML IV PRN ×2 (02:19→08:45)
[2021-12-23] MEDS: metroNIDAZOLE 250 mg/NS 50 ML IV SCH (05:14)
[2021-12-23] MEDS: IPRATROPIUM/ALBUTEROL SULFATE 3 ML AMPUL.NEB (DUONEB) INH SCH (07:10)
[2021-12-23 07:20] LABS: BASOPHILS # (AUTO) 0.2 K/uL (0.0-0.2); BASOPHILS % (AUTO) 1.1 % (0.0-2.0); EOSINOPHILS % (AUTO) 0.1 % (0.0-4.0); HEMATOCRIT 23.6 % (36-48); HEMOGLOBIN 7.9 g/dL (12.0-16.0); LYMPHOCYTES # (AUTO) 0.4 K/uL (1.0-5.5); MEAN CORPUSCULAR HEMOGLOBIN 34 pg (27-31); MEAN CORPUSCULAR HGB CONC 34 % (32-36); MEAN CORPUSCULAR VOLUME 102 fL (79.0-98.0); MONOCYTES # (AUTO) 0.8 K/uL (0.0-1.0); MONOCYTES % (AUTO) 3.7 % (1.7-9.3); NEUTROPHILS # (AUTO) 19.1 K/uL (1.8-7.7); NEUTROPHILS % (AUTO) 93.1 % (40.0-70.0); PLATELET COUNT (AUTO) 176 K/uL (130-430); RED BLOOD CELL COUNT(AUTO) 2.32 MIL/uL (4.2-6.2); RED CELL DISTRIBUTION WIDTH 15.8 % (9.0-15.0); WHITE BLOOD COUNT (AUTO) 20.5 K/uL (4.8-10.8)
[2021-12-23] MEDS: CEFEPIME 2 GM in D5W 100 ML IV SCH (08:13)
[2021-12-23] MEDS: VORICONAZOLE 200 MG in NS 100 ML IV SCH (08:18)
[2021-12-23] MEDS: ASPIRIN 81 MG TAB.CHEW PO SCH (08:19)
[2021-12-23] MEDS: FUROSEMIDE 40 MG/4 ML VIAL IVP SCH (08:19)
[2021-12-23] MEDS: METHYLPREDNISOLONE SOD SUCC 40 MG/ML VIAL IVP SCH (08:19)
[2021-12-23] MEDS: ENOXAPARIN SODIUM 30 MG/0.3 ML SYRINGE SUBCUT SCH (08:20)
[2021-12-23] MEDS ORDERED: MORPHINE 4 MG INJ. 4 MG/ML VIAL IVP PRN (09:45)
[2021-12-23] MEDS ORDERED: LORazepam 2 MG/ML VIAL IM PRN (09:45)
[2021-12-23 13:24] LABS: CALCIUM 8.3 mg/dL (8.4-11.0); CREATININE 0.7 mg/dL (0.55-1.30); POTASSIUM 5.2 mmol/L (3.5-5.1)
== END 2021-12-23 11:30 | DRG 870 ==
LOC: SED 15:35 → SIC 19:16 → UNDOADMIN 19:16 → SIC 21:35
PROVIDERS: ADMIT Internal Medicine; ATTEND Internal Medicine
PROC: 5A1955Z Respiratory Ventilation, Greater than 96 Consecutive Hours (ICD-10-PCS; principal; 2021-12-07)
PROC: 0BH17EZ Insertion of Endotracheal Airway into Trachea, Via Natural or Artificial Opening (ICD-10-PCS; 2021-12-07)
PROC: XW033E5 Introduction of Remdesivir Anti-infective into Peripheral Vein, Percutaneous Approach, New Technology Group 5 (ICD-10-PCS; 2021-12-12)
DX: A41.9 Sepsis, unspecified organism (principal); J12.82 Pneumonia due to coronavirus disease 2019; R65.21 Severe sepsis with septic shock; G93.41 Metabolic encephalopathy; J80 Acute respiratory distress syndrome; U07.1 COVID-19; E43 Unspecified severe protein-calorie malnutrition; I24.8 Other forms of acute ischemic heart disease; Z99.11 Dependence on respirator [ventilator] status; N17.9 Acute kidney failure, unspecified; B49 Unspecified mycosis; M81.0 Age-related osteoporosis without current pathological fracture; K58.9 Irritable bowel syndrome, unspecified; Z66 Do not resuscitate; G89.4 Chronic pain syndrome; D64.9 Anemia, unspecified; E88.09 Other disorders of plasma-protein metabolism, not elsewhere classified; E87.5 Hyperkalemia; R13.10 Dysphagia, unspecified; Z90.710 Acquired absence of both cervix and uterus; Z87.891 Personal history of nicotine dependence; Z79.01 Long term (current) use of anticoagulants; Z68.24 Body mass index [BMI] 24.0-24.9, adult
CPT/HCPCS: 36415; 36600; 70450-TC; 71045; 76376; 80048; 80053; 80061; 80307; 81003; 82009; 82140; 82550; 82803-TC; 83605; 83735; 83880; 84100; 84443; 84484; 85025; 85379; 85610-TC; 85651-TC; 85730-TC; 86140; 87040; 87070-TC; 87081; 87086; 87101; 87205-TC; 87305; 93005; 93306; 93970; 94003; 94640; 94760; 96374; 99285; C9113; G0480; G0481; G0482; J0456; J0610; J0692; J0696; J1030; J1100; J1650; J1940; J1956; J2060; J2248; J2270; J2310; J2543; J2704; J3262; J3465; J3480; J3490; J7050; J7060; U0003